=== PATIENT | female | born 1970 | race African-American/Black ===

== ENCOUNTER 2019-03-07 18:08 | Emergency (ER) | payer SELFPAY ==
[~2019-03-07] VITALS: Ht 180.3 cm; Wt 131.5 kg
[~2019-03-07 18:08] MED LIST: AMLO10TA13; FURO40TA4; HYDR-2616; HYDR25TA4; METO-158
[2019-03-07] MEDS ORDERED: SODIUM CHLORIDE 0.9% 1,000 ML IV ONE (19:45)
[2019-03-07] MEDS ORDERED: MORPHINE SULFATE 4 MG/ML SYR/VIAL IV ONE (19:45)
[2019-03-07] MEDS ORDERED: ONDANSETRON HCL 4 MG/2 ML VIAL IV ONE (19:45)
[2019-03-07 20:28] LABS: Basophils # (auto) 0.1 uL; Basophils % (auto) 0.6 % (0.0-2.0); Eosinophils # (auto) 0.1 uL; Eosinophils % (auto) 0.7 % (0.0-7.0); Hematocrit 43.4 % (36.0-46.0); Hemoglobin 14.7 g/dL (12.2-16.2); Lymphocytes % (auto) 15.1 % (10.0-50.0); Mean Corpuscular Hemoglobin 30.1 pg (28.0-32.0); Mean Corpuscular Volume 88.5 fL (80.0-100.0); Monocytes # (auto) 0.6 uL; Monocytes % (auto) 4.2 % (0.0-12.0); Neutrophils # (auto) 10.4 uL; Neutrophils % (auto) 79.4 % (37.0-80.0); Nucleated Red Blood Cells % 0.1 %; Platelet Count (auto) 265 10^3/uL (140-450); Red Cell Distribution Width 13.2 % (11.8-14.3); White Blood Cell 13.1 10^3/uL (4.4-10.8)
[2019-03-07] MEDS ORDERED: LEVOFLOXACIN 750MG 150 ML IV ONE (21:30)
[2019-03-07 22:15] LABS: Albumin 3.4 g/dL (3.4-5.0); BUN/Creatinine Ratio 15.1; Calcium 8.5 mg/dL (8.5-10.1); Potassium 3.4 mmol/L (3.5-5.1)
[2019-03-07 22:18] LABS: Bilirubin, Total 0.3 mg/dL (0.2-1.0); Total Protein 7.7 g/dL (6.4-8.2)
[2019-03-07 23:28] VITALS: BP 135/78
== END 2019-03-07 23:31 | disposition home or self-care (01) ==
LOC: ER 18:10
DX: J20.9 Acute bronchitis, unspecified (principal); D72.829 Elevated white blood cell count, unspecified; I10 Essential (primary) hypertension; Z90.49 Acquired absence of other specified parts of digestive tract; Z90.710 Acquired absence of both cervix and uterus
CPT/HCPCS: 36415; 71045; 80053; 83880; 84484; 85025; 87804; 93005; 96365; 96366; 96375; 99284; J1956; J2270; J2405

== ENCOUNTER → 2021-12-21 | Emergency (ER) | payer MEDICAID, OTHER ==
[~2021-12-21] MED LIST changes: +AMLO-496; -AMLO10TA13
== END | disposition left against medical advice (07) ==
LOC: ER 16:47
DX: R05.9 Cough, unspecified (principal); Z53.21 Procedure and treatment not carried out due to patient leaving prior to being seen by health care provider

== ENCOUNTER 2022-03-23 08:29 | Emergency (ER) | payer MEDICAID ==
[~2022-03-23] VITALS: Ht 180.3 cm; Wt 132.2 kg
[2022-03-23 08:40] VITALS: BP 155/96
[2022-03-23] MEDS ORDERED: HYDROcodone-ACET 10/325MG TAB PO ONE (09:45)
[2022-03-23] MEDS ORDERED: METH750T22 PO (10:29)
[2022-03-23] MEDS ORDERED: PRED20TA2 PO (10:29)
== END 2022-03-23 10:33 | disposition home or self-care (01) ==
LOC: ER 08:29
DX: M24.812 Other specific joint derangements of left shoulder, not elsewhere classified (principal); M67.823 Other specified disorders of tendon, right elbow; R94.31 Abnormal electrocardiogram [ECG] [EKG]
CPT/HCPCS: 73030; 73080; 93005